=== PATIENT | female | born 1960 | race Caucasian/White ===

== ENCOUNTER 2022-05-16 14:05 | Emergency (ER) | payer OTHER ==
[2022-05-16 15:04] LABS: BASOPHIL 0.5 % (0-2); EOSINOPHIL 0.1 % (0-5); HCT 46.5 % (37.0-47.0); HGB 15.9 g/dl (12.5-16.0); LYMPHOCYTE 24.3 % (15-48); MCH 30.6 pg (25.0-31.0); MCHC 34.2 g/dL (32.0-36.0); MCV 89.6 fL (78.0-100.0); MONOCYTE 4.4 % (0-12); MPV 10.3 fL (6.0-9.5); NEUTROPHIL 70.4 % (41-80); NRBC 0; PLT 251 K/uL (150-400); RBC 5.19 M/uL (4.20-5.40); RDW 12.1 % (11.5-14.0); WBC 7.5 K/uL (4.0-10.5)
[2022-05-16 15:10] LABS: BILIRUBIN NEGATIVE (NEGATIVE); BLOOD NEGATIVE Ery/uL (NEGATIVE); CLARITY CLEAR (CLEAR); COLOR YELLOW (YELLOW); GLUCOSE (U) NORMAL (NORMAL); LEUKOCYTES 2+ Leu/uL (NEGATIVE); NITRITE NEGATIVE (NEGATIVE); PROTEIN NEGATIVE (NEGATIVE); SPECIFIC GRAVITY 1.025 (1.001-1.030)
[2022-05-16 15:16] LABS: MUCOUS MODERATE
[2022-05-16 15:50] LABS: CORONAVIRUS 2019 SARS-COV-2 NEGATIVE (NEGATIVE); INFLUENZA A NAA NEGATIVE (NEGATIVE)
[2022-05-16 16:18] LABS: BILIRUBIN - TOTAL 1.7 mg/dL (0.2-1.0); BUN/CREAT RATIO (CALC) 19.7 RATIO; CREATININE 0.61 mg/dL (0.51-0.95); GLOBULIN (CALCULATION) 3.1 g/dL; POTASSIUM 3.9 mmol/L (3.5-5.1); TOTAL PROTEIN 7.1 g/dL (6.4-8.2)
== END 2022-05-16 19:50 | disposition home or self-care (01) ==
LOC: FER 14:05
PROVIDERS: Physician Assistant
DX: R63.0 Anorexia (principal); F17.210 Nicotine dependence, cigarettes, uncomplicated; Z20.822 Contact with and (suspected) exposure to COVID-19; Z88.5 Allergy status to narcotic agent
CPT/HCPCS: 36415; 71045; 80053; 81001; 83880; 84145; 84443; 84484; 85025; 93005; J7030; U0002